=== PATIENT | male | born 1945 | race Caucasian/White ===

== ENCOUNTER 2017-10-21 13:30 | Day surgery (SDC) | payer MEDICARE, SELFPAY | END 2017-10-21 22:50 | disposition home or self-care (01) | LOC: WOUND 13:30 | PROC: 0HBKXZZ Excision of Right Lower Leg Skin, External Approach (ICD-10-PCS; principal; 2017-10-21) | PROC: 0HRKXK3 Replacement of Right Lower Leg Skin with Nonautologous Tissue Substitute, Full Thickness, External Approach (ICD-10-PCS; principal; 2017-10-21) | DX: Z48.00 Encounter for change or removal of nonsurgical wound dressing (principal); I83.009 Varicose veins of unspecified lower extremity with ulcer of unspecified site; L03.115 Cellulitis of right lower limb; G14 Postpolio syndrome; E11.9 Type 2 diabetes mellitus without complications; I87.2 Venous insufficiency (chronic) (peripheral) | CPT/HCPCS: G0463; Q4131 ==

== ENCOUNTER 2017-10-28 13:31 | Day surgery (SDC) | payer MEDICARE, SELFPAY | END 2017-10-28 17:17 | disposition home or self-care (01) | LOC: WOUND 13:31 | PROC: 2W1LX6Z Compression of Right Lower Extremity using Pressure Dressing (ICD-10-PCS; principal; 2017-10-28) | DX: Z48.00 Encounter for change or removal of nonsurgical wound dressing (principal); L03.115 Cellulitis of right lower limb; I83.009 Varicose veins of unspecified lower extremity with ulcer of unspecified site; G14 Postpolio syndrome; I87.2 Venous insufficiency (chronic) (peripheral) | CPT/HCPCS: G0463 ==

== ENCOUNTER 2017-11-04 13:31 | Day surgery (SDC) | payer MEDICARE, SELFPAY | END 2017-11-04 16:01 | disposition home or self-care (01) | LOC: WOUND 13:31 | PROC: 0HBKXZZ Excision of Right Lower Leg Skin, External Approach (ICD-10-PCS; principal; 2017-11-04) | DX: Z48.00 Encounter for change or removal of nonsurgical wound dressing (principal); L03.115 Cellulitis of right lower limb; I83.009 Varicose veins of unspecified lower extremity with ulcer of unspecified site; G14 Postpolio syndrome; I87.2 Venous insufficiency (chronic) (peripheral); L97.812 Non-pressure chronic ulcer of other part of right lower leg with fat layer exposed; L97.512 Non-pressure chronic ulcer of other part of right foot with fat layer exposed | CPT/HCPCS: 87070; 87077; 87186; 87205 ==

== ENCOUNTER 2017-11-12 13:00 | Day surgery (SDC) | payer MEDICARE, SELFPAY | END 2017-11-12 16:11 | disposition home or self-care (01) | LOC: WOUND 13:00 | PROC: 0HBKXZZ Excision of Right Lower Leg Skin, External Approach (ICD-10-PCS; principal; 2017-11-12) | DX: Z48.00 Encounter for change or removal of nonsurgical wound dressing (principal); L03.115 Cellulitis of right lower limb; I83.009 Varicose veins of unspecified lower extremity with ulcer of unspecified site; G14 Postpolio syndrome; I87.2 Venous insufficiency (chronic) (peripheral) | CPT/HCPCS: G0463 ==

== ENCOUNTER 2017-11-19 13:20 | Day surgery (SDC) | payer MEDICARE, SELFPAY | END 2017-11-19 15:48 | disposition home or self-care (01) | LOC: WOUND 13:20 | PROC: 0HBKXZZ Excision of Right Lower Leg Skin, External Approach (ICD-10-PCS; principal; 2017-11-19) | DX: Z48.00 Encounter for change or removal of nonsurgical wound dressing (principal); L03.115 Cellulitis of right lower limb; I83.009 Varicose veins of unspecified lower extremity with ulcer of unspecified site; G14 Postpolio syndrome; I87.2 Venous insufficiency (chronic) (peripheral) | CPT/HCPCS: G0463 ==

== ENCOUNTER 2017-11-25 00:43 | Day surgery (SDC) | payer MEDICARE | END 2017-11-25 12:53 | disposition home or self-care (01) | LOC: WOUND 00:43 | DX: Z48.00 Encounter for change or removal of nonsurgical wound dressing (principal); L03.115 Cellulitis of right lower limb; I83.009 Varicose veins of unspecified lower extremity with ulcer of unspecified site; G14 Postpolio syndrome; I87.2 Venous insufficiency (chronic) (peripheral) ==

== ENCOUNTER 2017-11-30 00:13 | Day surgery (SDC) | payer MEDICARE | END 2017-11-30 22:52 | disposition home or self-care (01) | LOC: WOUND 00:13 | PROC: 0HBKXZZ Excision of Right Lower Leg Skin, External Approach (ICD-10-PCS; principal; 2017-11-30) | PROC: 2W1QX6Z Compression of Right Lower Leg using Pressure Dressing (ICD-10-PCS; principal; 2017-11-30) | DX: Z48.00 Encounter for change or removal of nonsurgical wound dressing (principal); L03.115 Cellulitis of right lower limb; I83.009 Varicose veins of unspecified lower extremity with ulcer of unspecified site; I87.2 Venous insufficiency (chronic) (peripheral); G14 Postpolio syndrome | CPT/HCPCS: G0463 ==

== ENCOUNTER 2017-12-07 00:18 | Day surgery (SDC) | payer MEDICARE, SELFPAY | END 2017-12-07 14:34 | disposition home or self-care (01) | LOC: WOUND 00:18 | PROC: 0HBKXZZ Excision of Right Lower Leg Skin, External Approach (ICD-10-PCS; principal; 2017-12-07) | PROC: 2W1QX6Z Compression of Right Lower Leg using Pressure Dressing (ICD-10-PCS; principal; 2017-12-07) | DX: Z48.00 Encounter for change or removal of nonsurgical wound dressing (principal); L03.115 Cellulitis of right lower limb; G14 Postpolio syndrome; I87.2 Venous insufficiency (chronic) (peripheral); I83.018 Varicose veins of right lower extremity with ulcer other part of lower leg; L97.811 Non-pressure chronic ulcer of other part of right lower leg limited to breakdown of skin ==

== ENCOUNTER 2017-12-14 00:05 | Day surgery (SDC) | payer MEDICARE, SELFPAY | END 2017-12-14 13:58 | disposition home or self-care (01) | LOC: WOUND 00:05 | PROC: 2W1SX6Z Compression of Right Foot using Pressure Dressing (ICD-10-PCS; principal; 2017-12-14) | PROC: 2W1QX6Z Compression of Right Lower Leg using Pressure Dressing (ICD-10-PCS; principal; 2017-12-14) | DX: Z48.00 Encounter for change or removal of nonsurgical wound dressing (principal); L03.115 Cellulitis of right lower limb; I83.009 Varicose veins of unspecified lower extremity with ulcer of unspecified site; G14 Postpolio syndrome; I87.2 Venous insufficiency (chronic) (peripheral); E11.9 Type 2 diabetes mellitus without complications ==

== ENCOUNTER 2017-12-21 | Day surgery (SDC) | END 2017-12-21 22:36 | disposition home or self-care (01) ==

== ENCOUNTER 2017-12-28 12:30 | Day surgery (SDC) | payer MEDICARE | END 2017-12-28 22:44 | disposition home or self-care (01) | LOC: WOUND 12:30 | DX: E11.622 Type 2 diabetes mellitus with other skin ulcer (principal); I87.2 Venous insufficiency (chronic) (peripheral); L97.919 Non-pressure chronic ulcer of unspecified part of right lower leg with unspecified severity; L03.115 Cellulitis of right lower limb; I83.019 Varicose veins of right lower extremity with ulcer of unspecified site | CPT/HCPCS: G0463 ==

== ENCOUNTER 2018-01-01 10:25 | Day surgery (SDC) | payer MEDICARE | END 2018-01-01 22:56 | disposition home or self-care (01) | LOC: WOUND 10:25 | PROC: 2W1QX6Z Compression of Right Lower Leg using Pressure Dressing (ICD-10-PCS; principal; 2018-01-01) | DX: I87.2 Venous insufficiency (chronic) (peripheral) (principal); E11.622 Type 2 diabetes mellitus with other skin ulcer; L03.115 Cellulitis of right lower limb; I83.018 Varicose veins of right lower extremity with ulcer other part of lower leg; G14 Postpolio syndrome; L97.819 Non-pressure chronic ulcer of other part of right lower leg with unspecified severity | CPT/HCPCS: G0463 ==

== ENCOUNTER → 2018-01-04 | Outpatient (CLI) | payer MEDICARE | LOC: LAB SHORT 07:47 → PLD 07:47 | DX: L57.0 Actinic keratosis (principal) | CPT/HCPCS: 88305 ==

== ENCOUNTER 2018-01-08 12:24 | Day surgery (SDC) | payer MEDICARE | END 2018-01-08 16:59 | disposition home or self-care (01) | LOC: WOUND 12:24 | PROC: 2W1LX6Z Compression of Right Lower Extremity using Pressure Dressing (ICD-10-PCS; principal; 2018-01-08) | DX: I87.2 Venous insufficiency (chronic) (peripheral) (principal); E11.622 Type 2 diabetes mellitus with other skin ulcer; L03.115 Cellulitis of right lower limb; I83.009 Varicose veins of unspecified lower extremity with ulcer of unspecified site; G14 Postpolio syndrome; L97.819 Non-pressure chronic ulcer of other part of right lower leg with unspecified severity | CPT/HCPCS: G0463 ==

== ENCOUNTER 2018-01-15 00:23 | Day surgery (SDC) | payer MEDICARE | END 2018-01-15 15:55 | disposition home or self-care (01) | LOC: WOUND 00:23 | DX: Z48.00 Encounter for change or removal of nonsurgical wound dressing (principal); I83.228 Varicose veins of left lower extremity with both ulcer of other part of lower extremity and inflammation; L97.822 Non-pressure chronic ulcer of other part of left lower leg with fat layer exposed; L03.115 Cellulitis of right lower limb; G14 Postpolio syndrome ==

== ENCOUNTER → 2018-01-20 | Outpatient (CLI) | payer MEDICARE | LOC: PLD 14:03 → LAB SHORT 14:03 | DX: D48.5 Neoplasm of uncertain behavior of skin (principal) | CPT/HCPCS: 88305 ==

== ENCOUNTER 2018-01-21 10:20 | Day surgery (SDC) | payer MEDICARE | END 2018-01-21 22:51 | disposition home or self-care (01) | LOC: WOUND 10:20 | PROC: 0HBKXZZ Excision of Right Lower Leg Skin, External Approach (ICD-10-PCS; principal; 2018-01-21) | DX: I87.2 Venous insufficiency (chronic) (peripheral) (principal); G14 Postpolio syndrome; L03.115 Cellulitis of right lower limb; E11.9 Type 2 diabetes mellitus without complications | CPT/HCPCS: G0463 ==

== ENCOUNTER 2018-01-29 12:15 | Day surgery (SDC) | payer MEDICARE | END 2018-01-29 22:45 | disposition home or self-care (01) | LOC: WOUND | PROC: 2W1QX6Z Compression of Right Lower Leg using Pressure Dressing (ICD-10-PCS; principal; 2018-01-29) | DX: I87.2 Venous insufficiency (chronic) (peripheral) (principal); I83.009 Varicose veins of unspecified lower extremity with ulcer of unspecified site; G14 Postpolio syndrome; E11.622 Type 2 diabetes mellitus with other skin ulcer; L97.812 Non-pressure chronic ulcer of other part of right lower leg with fat layer exposed | CPT/HCPCS: G0463 ==

== ENCOUNTER 2018-02-02 10:05 | Day surgery (SDC) | payer MEDICARE | END 2018-02-02 12:20 | disposition home or self-care (01) | LOC: WOUND 10:05 | PROC: 2W1QX6Z Compression of Right Lower Leg using Pressure Dressing (ICD-10-PCS; principal; 2018-02-02) | DX: I87.2 Venous insufficiency (chronic) (peripheral) (principal); L03.115 Cellulitis of right lower limb; I83.009 Varicose veins of unspecified lower extremity with ulcer of unspecified site; G14 Postpolio syndrome | CPT/HCPCS: 87070; 87075; 87077; 87186; 87205; G0463 ==

== ENCOUNTER 2018-02-09 12:25 | Day surgery (SDC) | payer MEDICARE | END 2018-02-09 13:27 | disposition home or self-care (01) | LOC: WOUND 12:25 | PROC: 2W1QX6Z Compression of Right Lower Leg using Pressure Dressing (ICD-10-PCS; principal; 2018-02-09) | DX: I87.2 Venous insufficiency (chronic) (peripheral) (principal); L03.115 Cellulitis of right lower limb; I83.009 Varicose veins of unspecified lower extremity with ulcer of unspecified site; G14 Postpolio syndrome; L97.919 Non-pressure chronic ulcer of unspecified part of right lower leg with unspecified severity ==

== ENCOUNTER 2018-02-16 10:06 | Day surgery (SDC) | payer MEDICARE | END 2018-02-16 22:52 | disposition home or self-care (01) | LOC: WOUND 10:06 | PROC: 2W1QX6Z Compression of Right Lower Leg using Pressure Dressing (ICD-10-PCS; principal; 2018-02-16) | DX: E11.622 Type 2 diabetes mellitus with other skin ulcer (principal); I87.2 Venous insufficiency (chronic) (peripheral); L97.812 Non-pressure chronic ulcer of other part of right lower leg with fat layer exposed; L03.115 Cellulitis of right lower limb; I83.009 Varicose veins of unspecified lower extremity with ulcer of unspecified site; G14 Postpolio syndrome | CPT/HCPCS: G0463 ==

== ENCOUNTER 2018-02-23 11:10 | Day surgery (SDC) | payer MEDICARE | END 2018-02-23 23:34 | disposition home or self-care (01) | LOC: WOUND 11:10 | PROC: 2W1QX6Z Compression of Right Lower Leg using Pressure Dressing (ICD-10-PCS; principal; 2018-02-23) | DX: I87.2 Venous insufficiency (chronic) (peripheral) (principal); L03.115 Cellulitis of right lower limb; I83.009 Varicose veins of unspecified lower extremity with ulcer of unspecified site; G14 Postpolio syndrome; L97.819 Non-pressure chronic ulcer of other part of right lower leg with unspecified severity | CPT/HCPCS: G0463 ==

== ENCOUNTER 2018-03-02 00:36 | Day surgery (SDC) | payer MEDICARE | END 2018-03-02 22:42 | disposition home or self-care (01) | LOC: WOUND 00:36 | DX: I87.2 Venous insufficiency (chronic) (peripheral) (principal); E11.622 Type 2 diabetes mellitus with other skin ulcer; L97.819 Non-pressure chronic ulcer of other part of right lower leg with unspecified severity; L03.115 Cellulitis of right lower limb; I83.009 Varicose veins of unspecified lower extremity with ulcer of unspecified site; G14 Postpolio syndrome | CPT/HCPCS: G0463 ==

== ENCOUNTER 2018-03-09 00:54 | Day surgery (SDC) | payer MEDICARE | END 2018-03-09 22:38 | disposition home or self-care (01) | LOC: WOUND 00:54 | PROC: 2W1QX6Z Compression of Right Lower Leg using Pressure Dressing (ICD-10-PCS; principal; 2018-03-09) | DX: E11.622 Type 2 diabetes mellitus with other skin ulcer (principal); L97.819 Non-pressure chronic ulcer of other part of right lower leg with unspecified severity; I87.2 Venous insufficiency (chronic) (peripheral); L03.115 Cellulitis of right lower limb; I83.009 Varicose veins of unspecified lower extremity with ulcer of unspecified site; G14 Postpolio syndrome | CPT/HCPCS: G0463 ==

== ENCOUNTER 2018-03-18 13:50 | Day surgery (SDC) | payer MEDICARE | END 2018-03-18 14:31 | disposition home or self-care (01) | LOC: WOUND 13:50 | DX: Z48.00 Encounter for change or removal of nonsurgical wound dressing (principal); I87.2 Venous insufficiency (chronic) (peripheral); L03.115 Cellulitis of right lower limb; I83.009 Varicose veins of unspecified lower extremity with ulcer of unspecified site; G14 Postpolio syndrome | CPT/HCPCS: G0463 ==

== ENCOUNTER 2018-07-12 08:52 | Day surgery (SDC) | payer MEDICARE, SELFPAY | END 2018-07-12 22:39 | disposition home or self-care (01) | LOC: WOUND 08:52 | PROC: 0HBMXZZ Excision of Right Foot Skin, External Approach (ICD-10-PCS; principal; 2018-07-12) | PROC: 2W1QX6Z Compression of Right Lower Leg using Pressure Dressing (ICD-10-PCS; principal; 2018-07-12) | DX: E11.621 Type 2 diabetes mellitus with foot ulcer (principal); E11.622 Type 2 diabetes mellitus with other skin ulcer; I87.2 Venous insufficiency (chronic) (peripheral); G14 Postpolio syndrome; L97.819 Non-pressure chronic ulcer of other part of right lower leg with unspecified severity; L97.319 Non-pressure chronic ulcer of right ankle with unspecified severity; L97.519 Non-pressure chronic ulcer of other part of right foot with unspecified severity; L97.211 Non-pressure chronic ulcer of right calf limited to breakdown of skin | CPT/HCPCS: G0463 ==

== ENCOUNTER 2018-07-14 13:08 | Day surgery (SDC) | payer MEDICARE, SELFPAY | END 2018-07-14 14:20 | disposition home or self-care (01) | LOC: WOUND 13:08 | DX: E11.621 Type 2 diabetes mellitus with foot ulcer (principal); L97.211 Non-pressure chronic ulcer of right calf limited to breakdown of skin; I87.2 Venous insufficiency (chronic) (peripheral); M25.774 Osteophyte, right foot; G14 Postpolio syndrome ==

== ENCOUNTER 2018-07-22 00:06 | Day surgery (SDC) | payer MEDICARE, SELFPAY | END 2018-07-22 22:43 | disposition home or self-care (01) | LOC: WOUND 00:06 | DX: L97.211 Non-pressure chronic ulcer of right calf limited to breakdown of skin (principal); E11.621 Type 2 diabetes mellitus with foot ulcer; I87.2 Venous insufficiency (chronic) (peripheral); M25.774 Osteophyte, right foot; G14 Postpolio syndrome; L84 Corns and callosities ==

== ENCOUNTER 2018-07-29 00:18 | Day surgery (SDC) | payer MEDICARE, SELFPAY | END 2018-07-29 22:38 | disposition home or self-care (01) | LOC: WOUND 00:18 | DX: E11.621 Type 2 diabetes mellitus with foot ulcer (principal); L97.211 Non-pressure chronic ulcer of right calf limited to breakdown of skin; I87.2 Venous insufficiency (chronic) (peripheral); G14 Postpolio syndrome; M25.774 Osteophyte, right foot ==

== ENCOUNTER 2018-08-19 00:09 | Day surgery (SDC) | payer MEDICARE, SELFPAY | END 2018-08-19 22:34 | disposition home or self-care (01) | LOC: WOUND 00:09 | DX: E11.622 Type 2 diabetes mellitus with other skin ulcer (principal); L97.211 Non-pressure chronic ulcer of right calf limited to breakdown of skin; E11.51 Type 2 diabetes mellitus with diabetic peripheral angiopathy without gangrene; M25.774 Osteophyte, right foot; G14 Postpolio syndrome; L57.0 Actinic keratosis ==

== ENCOUNTER 2018-10-14 00:18 | Day surgery (SDC) | payer MEDICARE, SELFPAY | END 2018-10-14 22:44 | disposition home or self-care (01) | LOC: WOUND 00:18 | DX: I87.2 Venous insufficiency (chronic) (peripheral) (principal); M25.774 Osteophyte, right foot; E11.9 Type 2 diabetes mellitus without complications; G14 Postpolio syndrome | CPT/HCPCS: G0463 ==

== ENCOUNTER 2018-10-23 17:35 | Emergency (ER) | payer MEDICARE, SELFPAY ==
[~2018-10-23] VITALS: Ht 177.8 cm; Wt 90.7 kg
[2018-10-23] MEDS ORDERED: Hydrocodone-Ap1 EA20 PO (17:54)
[2018-10-23] MEDS ORDERED: GLIP10 PO (17:54)
[2018-10-23] MEDS ORDERED: BENA20 PO (17:54)
[2018-10-23] MEDS ORDERED: Metformin HCl500 MG PO (17:54)
== END 2018-10-23 18:42 | disposition home or self-care (01) ==
LOC: ER 17:35
DX: S61.211A Laceration without foreign body of left index finger without damage to nail, initial encounter (principal); W26.0XXA Contact with knife, initial encounter; Z79.84 Long term (current) use of oral hypoglycemic drugs; Z79.899 Other long term (current) drug therapy; Z79.891 Long term (current) use of opiate analgesic; E11.9 Type 2 diabetes mellitus without complications; I10 Essential (primary) hypertension; Z87.891 Personal history of nicotine dependence
CPT/HCPCS: 12001; 90471; 90714; 99282-25

== ENCOUNTER 2019-01-11 09:16 | Day surgery (SDC) | payer MEDICARE ==
[~2019-01-11] VITALS: Ht 177.8 cm; Wt 86.4 kg
[~2019-01-11 09:16] MED LIST: BENA20 PO; GLIP10 PO; Hydrocodone-Ap1 EA20 PO; Metformin HCl500 MG PO
--- NOTE | 2019-01-11 12:01 | NUR ---
PT AWAKENS WITH SPEECH INTACT, APPROPRIATELY CONVERSIVE WITH CONTENT TO CONTEXT OF SITUATION. VSS. DISCHARGE TEACHING PERFORMED VERBATIM IN SELECT AREAS THAT HAVE BEEN PERSONALLY HIGHLIGHTED FOR IMMEDIATE ATTENTION. QUESTIONS ANSWERED. SIGNED ACKNOWLEDGEMENT OBTAINED. RETURNS. IV DC'D WITH CANNULA TIP INTACT. FOLDED 2X2 GAUZE PLACED WITH LIGHT COBAN WRAP. PT SLOW TO DRESS SECONDARY TO LEG BRACE. WHEELCHAIR PROVIDED FOR HOSPITAL EXIT.
== END 2019-01-11 22:49 | disposition home or self-care (01) ==
LOC: MHTC 09:16
DX: I87.2 Venous insufficiency (chronic) (peripheral) (principal); E11.622 Type 2 diabetes mellitus with other skin ulcer; L97.319 Non-pressure chronic ulcer of right ankle with unspecified severity; I10 Essential (primary) hypertension; M19.90 Unspecified osteoarthritis, unspecified site; Z87.891 Personal history of nicotine dependence
CPT/HCPCS: 36465; 36466; 99152; 99153; J1644; J2250; J3010; J7030; J7040

== ENCOUNTER → 2019-02-17 | Outpatient (CLI) | payer MEDICARE | END | disposition home or self-care (01) | LOC: PLD 12:57 → LAB SHORT 12:57 | DX: L57.0 Actinic keratosis (principal) | CPT/HCPCS: 88304; 88305; 88312 ==

== ENCOUNTER → 2020-07-23 | Outpatient (CLI) | payer MEDICARE, OTHER | END | disposition home or self-care (01) | LOC: PLD 15:17 → LAB SHORT 15:17 | DX: L82.1 Other seborrheic keratosis (principal) | CPT/HCPCS: 88305 ==

== ENCOUNTER → 2022-07-05 | Outpatient (CLI) | payer MEDICARE ==
[~2022-07-05] MED LIST changes: +LOSA50 PO; +METF500 PO; -Metformin HCl500 MG PO
[2022-07-05 15:32] LABS: BASOPHILS ABSOLUTE AUTO 0.03 K/mm3 (0.00-0.23); BASOPHILS PERCENT AUTO 0 % (0-2); EOSINOPHILS ABSOLUTE AUTO 0.01 K/mm3 (0.00-0.68); EOSINOPHILS PERCENT AUTO 0 % (0-6); Hematocrit 41.2 % (37.0-53.0); Hemoglobin 14.1 g/dL (13.5-17.5); IMMATURE GRAN ABSOLUTE AUTO 0.03 K/mm3 (0.00-0.10); IMMATURE GRAN PERCENT AUTO 0 % (0-1); LYMPHOCYTES ABSOLUTE AUTO 0.77 K/mm3 (0.84-5.20); LYMPHOCYTES PERCENT AUTO 10 % (21-46); MONOCYTES ABSOLUTE AUTO 0.46 K/mm3 (0.16-1.47); MONOCYTES PERCENT AUTO 6 % (4-13); Mean Corpuscular HGB Conc 34.2 g/dL (31.5-36.5); Mean Corpuscular Volume 88 fL (80-100); Mean Platelet Volume 10.8 fL (9.1-12.4); NEUTROPHILS ABSOLUTE AUTO 6.37 K/mm3 (1.96-9.15); NEUTROPHILS PERCENT AUTO 83 % (41-73); Platelet Count 184 K/mm3 (150-400); RDW Coefficient Variation 13.2 % (11.7-14.2); RDW Standard Deviation 42.3 fL (35.1-46.3); White Blood Cell Count 7.67 K/mm3 (4.00-11.30)
[2022-07-05 15:41] LABS: Albumin, Blood 3.7 g/dL (3.4-5.0); Albumin/Globulin Ratio 0.9 (0.8-1.8); Bun/Creatinine Ratio 12.8 (12.0-20.0); Calcium, Blood 9.3 mg/dL (8.5-10.1); Creatinine, Blood 1.09 mg/dL (0.60-1.20); Globulin, Blood 3.9 g/dL (2.2-4.0); Potassium, Blood 4.3 mmol/L (3.5-5.5); Total Protein, Blood 7.6 g/dL (6.4-8.2)
== END | disposition home or self-care (01) ==
LOC: LAB SHORT 15:25 → LAB 15:25
PROVIDERS: Physician Assistant Medical
DX: R10.11 Right upper quadrant pain (principal)
CPT/HCPCS: 80053; 85025

== ENCOUNTER 2023-01-13 10:25 | Emergency (ER) | payer MEDICARE ==
[~2023-01-13] VITALS: Ht 177.8 cm; Wt 83.9 kg
[~2023-01-13 10:25] MED LIST changes: +ATORVASTATIN CA20 MG PO; +LOSARTAN 50 MG; +METO25ER PO; +Norco 5-325 Ta1 EACH PO; +TRIA15CR3 TOP
[2023-01-13 11:24] LABS: Calcium, Blood 8.8 mg/dL (8.5-10.1); Creatinine, Blood 1.15 mg/dL (0.60-1.20); Potassium, Blood 5.1 mmol/L (3.5-5.5)
== END 2023-01-13 11:37 | disposition home or self-care (01) ==
LOC: ER 10:25
PROVIDERS: Physician Assistant
DX: Z04.89 Encounter for examination and observation for other specified reasons (principal); E11.9 Type 2 diabetes mellitus without complications; I10 Essential (primary) hypertension; R31.9 Hematuria, unspecified; F17.210 Nicotine dependence, cigarettes, uncomplicated; Z88.8 Allergy status to other drugs, medicaments and biological substances; Z79.899 Other long term (current) drug therapy
CPT/HCPCS: 36415; 80048; 99283